=== PATIENT | female | born 2000 | race Hispanic/Latino ===

== ENCOUNTER 2022-03-17 07:23 | Day surgery (SDC) | payer OTHER ==
[2022-03-11 15:23] VITALS: BMI 36.3
[2022-03-16 08:45] LABS: Mean Corpuscular HGB CONC 33.2 g/dL (32.0-36.0); Mean Corpuscular Hemoglobin 26.4 pg (27.0-33.0); Mean Corpuscular Volume 79.4 fl (81.6-98.3); Mean Platelet Volume 11.7 fl (7.4-10.4); Platelet Count 284 10x3/uL (150-450); Red Blood Cell (RBC) Count 4.17 10x6/uL (3.90-5.03); White Blood Cell (WBC) Count 7.4 10x3/uL (3.5-10.5)
[2022-03-16 08:53] LABS: BHCG - Serum Negative (NEGATIVE); Pregs Control Background? CLEAR/WHITE (CLR/WHITE); Pregs Control Bar Appear? YES (CONTROL BAR)
[2022-03-17] MEDS ORDERED: CeleCOXIB 100 MG CAP ONE (08:20)
[2022-03-17] MEDS ORDERED: PROPOFOL 40 ML ONE (09:50)
[2022-03-17] MEDS ORDERED: Fentanyl 100 MCG/2 ML VIAL ONE (09:50)
[2022-03-17] MEDS ORDERED: Dexamethasone 4 mg/ml Vial ONE (09:51)
[2022-03-17] MEDS ORDERED: Ondansetron PF 4 MG/2 ML Vial ONE (09:51)
[2022-03-17] MEDS ORDERED: Lidocaine 1% PF 5 ML VIAL ONE (09:51)
[2022-03-17] MEDS ORDERED: Scopolamine 1.5 mg/72 hour Patch ONE (10:05)
[2022-03-17] MEDS ORDERED: Midazolam HCl 2 mg/2 ml Vial ONE (10:05)
[2022-03-17] MEDS ORDERED: HYDROcodone/Acetaminophen 5/325 mg Tablet ONE (12:21)
== END 2022-03-17 12:55 | disposition home or self-care (01) ==
LOC: CSHSDC 07:23
PROVIDERS: ATTEND Student in an Organized Health Care Education/Training Program
PROC: 0UDB8ZX Extraction of Endometrium, Via Natural or Artificial Opening Endoscopic, Diagnostic (ICD-10-PCS; principal; 2022-03-17)
DX: R93.89 Abnormal findings on diagnostic imaging of other specified body structures (principal); N92.0 Excessive and frequent menstruation with regular cycle; R73.03 Prediabetes; Z79.899 Other long term (current) drug therapy
CPT/HCPCS: 84703; 85027; 86850; 86900; 86901; 88305; J1100; J2250; J2405; J2704; J3010

== ENCOUNTER 2022-06-03 16:21 | Emergency (ER) | payer OTHER | END 2022-06-03 17:39 | disposition home or self-care (01) | LOC: CSHERS 16:21 | DX: L29.9 Pruritus, unspecified (principal); B86 Scabies | CPT/HCPCS: 99282 ==

== ENCOUNTER 2022-11-21 10:19 | Emergency (ER) | payer OTHER ==
[2022-11-21] MEDS ORDERED: Acetaminophen 500 MG TAB ONE (11:37)
[2022-11-21] MEDS ORDERED: Dexamethasone 4 MG TAB ONE (11:37)
[2022-11-21 12:14] LABS: SARS-CoV-2 NAA Rapid Test Not Detected (NotDetected)
== END 2022-11-21 12:38 | disposition home or self-care (01) ==
LOC: CSHERS 10:19
DX: J06.9 Acute upper respiratory infection, unspecified (principal); Z79.899 Other long term (current) drug therapy
CPT/HCPCS: 99283; J8540